=== PATIENT | female | born 1985 | race Caucasian/White ===

== ENCOUNTER 2016-09-14 12:35 | Outpatient (CLI) | payer BC ==
[~2016-09-14 12:35] MED LIST: ACID REDUCER150 MG PO; ALPRAZOLAM0.5 MG PO; AMITRIPTYLINE100 MG PO; BUSPIRONE HCL10 MG PO; CETIRIZINE HCL10 MG PO; COLCRYS0.6 M1 PO; FLONASE AL50 MCG/ACT; GABAPENTIN300 MG PO; HYDROCHLOROTH12.5 MG PO; MACRODANTIN50 MG PO; NORCO1 TAB PO; OMEPRAZOLE40 MG PO; PROAIR HFA IN; SINGULAIR10 MG PO; TOPROL XL25 MG PO
--- NOTE | 2016-09-14 13:11 | DIAGNOSTIC IMAGING REPORT ---
PROCEDURE: XR FOOT 3 VIEWS - RIGHT INDICATION: RIGHT FOOT PAIN TECHNIQUE: Three views. COMPARISON: None. FINDINGS: Osseous structures and joint spaces are normal. IMPRESSION: 1. Normal right foot.
== END 2016-09-14 23:00 ==
LOC: XR SRH 12:35
DX: M79.671 Pain in right foot (principal)